=== PATIENT | female | born 1945 | race Caucasian/White ===

== ENCOUNTER 2024-09-28 07:07 | Outpatient (CLI) | payer MEDICARE | END 2024-09-28 07:08 | disposition home or self-care (01) | PROVIDERS: ATTEND Internal Medicine | DX: R00.2 Palpitations (principal) | CPT/HCPCS: 93225; 93226 ==

== ENCOUNTER 2024-10-08 07:45 | Outpatient (CLI) | payer MEDICARE ==
[2024-10-08] MEDS ORDERED: Regadenoson 0.4 MG/5 ML SYRINGE ONE (09:05)
== END 2024-10-08 07:46 | disposition home or self-care (01) ==
LOC: NM 07:45
PROVIDERS: ATTEND Internal Medicine
DX: R00.2 Palpitations (principal)
CPT/HCPCS: 78452; 93017; A9502; J2785 ×2